=== PATIENT | male | born 1980 | race Caucasian/White ===

== ENCOUNTER → 2020-04-29 16:00 | Outpatient (BNVA) | payer MEDICAID, SELFPAY | PROVIDERS: Family Provider Family Medicine; PCP Nurse Practitioner Family; Visit Provider Nurse Practitioner Family | DX: E11.65 Type 2 diabetes mellitus with hyperglycemia (principal); Z72.0 Tobacco use | CPT/HCPCS: 80053; 80061; 83036; 85025 ==

== ENCOUNTER → 2020-07-02 08:55 | Outpatient (BNVA) | payer MEDICAID, SELFPAY | PROVIDERS: Family Provider Family Medicine; PCP Nurse Practitioner Family; Visit Provider Psychiatry & Neurology Psychiatry | DX: F32.9 Major depressive disorder, single episode, unspecified (principal); F43.10 Post-traumatic stress disorder, unspecified | CPT/HCPCS: 90792 ==

== ENCOUNTER → 2021-08-20 15:21 | Outpatient (BNVA) | payer OTHER, SELFPAY | PROVIDERS: Family Provider Family Medicine; PCP Nurse Practitioner Family; Visit Provider Psychiatry & Neurology Neurology | DX: Z79.899 Other long term (current) drug therapy (principal) | CPT/HCPCS: 36415; 80061; 83036 ==

== ENCOUNTER 2022-04-17 01:12 | Emergency (ER) | payer MEDICAID, SELFPAY ==
[2021-08-28 10:32] VITALS: BP 115/85; BMI 25.3
[2022-04-17 01:15] VITALS: BP 107/71; PULSE 74; RESP 21; O2SAT 95; BMI 23.7
[2022-04-17 01:33] LABS: Basophils # 0.1 10^3/uL (0.0-0.1); Basophils % 0.7 %; Eosinophils # 0.2 10^3/uL (0.0-0.8); Eosinophils % 1.4 %; Hematocrit 38.7 % (42.0-52.0); Hemoglobin 12.8 g/dL (11.7-16.6); Lymphocytes # 1.9 10^3/uL (0.8-4.8); Lymphocytes % 16.9 %; Mean Corpuscular HGB Conc 33.1 g/dL (30.0-36.0); Mean Corpuscular Hemoglobin 33.5 pg (28.0-34.0); Mean Corpuscular Volume 101.3 fl (80-94); Mean Platelet Volume 9.9 fL (7.4-10.4); Monocytes # 0.8 10^3/uL (0.2-0.9); Monocytes % 7.2 %; Neutrophils # 8.08 10^3/uL (1.8-7.7); Neutrophils % 73.6 %; Nucleated Red Blood Cells % 0 %; Platelet Count 281 10^3/cmm (130-400); Red Blood Count 3.82 10^6/uL (4.1-5.3); Red Cell Distribution Width 14.2 % (12.1-15.1)
--- NOTE | 2022-04-17 01:35 | ED_ITS ---
HPI - General Adult General: Chief complaint: General Medical Stated complaint: heat exhaustion Time Seen by Provider: 04/17/22 01:12 Source: patient Mode of arrival: ambulatory Limitations: no limitations History of Present Illness: 42-year-old male that states that his car had broken down in [place] and he states has been out in the heat all day. He states that he walked quite a ways as well and he feels like he has gotten overheated from being out in the heat and walking. He states been having cramps along with some vomiting. Denies any pain anywhere patient denies any chest pain or headache currently. Associated symptoms: Reports nausea and vomiting; Deny chest pain, dyspnea, headache(s) or rash Review of Systems Const: Reports: body aches Eyes: Denies: blurry vision or eye discomfort ENMT: Denies: throat pain or dental pain Card: Denies: chest pain Resp: Denies: dyspnea GI: Reports: nausea and vomiting : Denies: dysuria Musc: Denies: neck pain or back pain Skin/Breast: Denies: rash Neuro: Denies: headache(s) Psych: Denies: depression Justino/Lymph: Denies: easy bruising All/Imm: Denies: urticaria PFSH ED PFSH: Medical History Insomnia Major depressive disorder Neuropathy Nicotine dependence with current use Psychiatric care PTSD (post-traumatic stress disorder) Type 2 diabetes mellitus Social History Smoking and tobacco status: current every day smoker cigarettes Packs smoked per day: 1 Years cigarettes smoked: 20 and smokeless tobacco Smokeless tobacco user: chewing tobacco Smokeless tobacco details: 1 can per week Quit status (tobacco): not considering quitting Second hand smoke exposure: No Alcohol intake: former Year of sobriety/quit date alcohol: 2020 Former alcohol use details: may or june 2021 Adopted: Yes Lives independently: No Household members: spouse and children Housing: House Marital status: Number of children: 2 Number of grandchildren: 0 Highest education level completed: Some College, No Degree service: Yes status: Medically Discharged/Retired status details: medically retired branch: [employer] Known or Potential Exposure: Post Traumatic Stress Disorder (PTSD) Current occupational exposures/hazards: No Pets and animals: Yes Pets & animals: cat(s) History of recent travel: No Leisure activites: hunting, fishing and other Leisure activities details: work around the house Sexually active: No Current gender identity: Male Abril/Mu-Ism: Uatsdin Special abril needs: No Agree to transfusion: Yes Financial difficulty paying for basics: Somewhat Hard Physical Exam Const: COMMON NORMALS: no acute distress, patient oriented x3 and healthy appearing HENMT: COMMON NORMALS: normocephalic and atraumatic HEAD & SCALP: normocephalic and atraumatic Eye: COMMON NORMALS: Equal, round and reactive pupils present and EOMs intact bilaterally PUPIL: Yes Equal, round and reactive pupils present Neck/C-Spine: COMMON NORMALS: full ROM and supple Chest: COMMONS NORMALS: normal inspection of the chest and normal palpation of entire chest wall Resp: COMMON NORMALS: normal respiratory effort, No retractions, No use of accessory muscles and clear to auscultation bilaterally AUSCULTATION: clear to auscultation bilaterally Cardio: COMMON NORMALS: regular rate, regular rhythm and No murmurs present (Cardio) RATE: regular rate RHYTHM: regular rhythm GI: COMMON NORMALS: Normal to inspection, nondistended, normoactive bowel sounds present, Soft to palpation, non-tender and no masses PALPATION: Yes Soft to palpation Extremity: COMMON NORMALS: normal to inspection and full ROM Neuro: COMMON NORMALS: patient oriented x3, moves all extremities and no focal motor deficits Psych: COMMON NORMALS: mental status grossly normal, Normal thought process present and cooperative THOUGHT PROCESS: Normal thought process present Skin: COMMON NORMALS: no rashes or lesions noted and no wounds GENERAL SKIN EXAM: no rashes or lesions noted Course Vital Signs: Vital signs: Vital Signs Pulse Rate 82 04/17/22 02:24 Respiratory Rate 21 H 04/17/22 01:15 Blood Pressure 119/82 04/17/22 02:24 Pulse Oximetry 95 04/17/22 02:24 [facility] - General Adult Medical Decision Making Patient presents here with heat exposure likely causing his cramps while nausea feels much improved after IV fluids blood work is normal he is stable for discharge is to follow-up PCP and return if worsening. Lab Data : 04/17/22 01:30 04/17/22 01:30 Laboratory Results WBC 11.0 10^3/uL (4.0-10.0) H 04/17/22 01:30 RBC 3.82 10^6/uL (4.1-5.3) L 04/17/22 01:30 Hgb 12.8 g/dL (11.7-16.6) 04/17/22 01:30 Hct 38.7 % (42.0-52.0) L 04/17/22 01:30 MCV 101.3 fl (80-94) H 04/17/22 01:30 MCH 33.5 pg (28.0-34.0) 04/17/22 01:30 MCHC 33.1 g/dL (30.0-36.0) 04/17/22 01:30 RDW 14.2 % (12.1-15.1) 04/17/22 01:30 Plt Count 281 10^3/cmm (130-400) 04/17/22 01:30 MPV 9.9 fL (7.4-10.4) 04/17/22 01:30 Neut % (Auto) 73.6 % 04/17/22 01:30 Lymph % (Auto) 16.9 % 04/17/22 01:30 [place] % (Auto) 7.2 % 04/17/22 01:30 Eos % (Auto) 1.4 % 04/17/22 01:30 Baso % (Auto) 0.7 % 04/17/22 01:30 Neut # (Auto) 8.08 10^3/uL (1.8-7.7) H 04/17/22 01:30 Lymph # (Auto) 1.9 10^3/uL (0.8-4.8) 04/17/22 01:30 [place] # (Auto) 0.8 10^3/uL (0.2-0.9) 04/17/22 01:30 Eos # (Auto) 0.2 10^3/uL (0.0-0.8) 04/17/22 01:30 Baso # (Auto) 0.1 10^3/uL (0.0-0.1) 04/17/22 01:30 Nucleated RBC % (auto) 0 % 04/17/22 01:30 Nucleated RBCs # 0.0 /100WBC 04/17/22 01:30 Sodium 138 mmol/L (136-145) 04/17/22 01:30 Potassium 3.6 mmol/L (3.5-5.1) 04/17/22 01:30 Chloride 104 mmol/L (98-107) 04/17/22 01:30 Carbon Dioxide 21 mmol/L (22-29) L 04/17/22 01:30 Anion Gap 16.6 (5-19) 04/17/22 01:30 BUN 12 mg/dL (6-20) 04/17/22 01:30 Creatinine 0.7 mg/dL (0.7-1.2) 04/17/22 01:30 GFR Calculation 123.1 mL/min (90-130) 04/17/22 01:30 Glucose 119 mg/dL (65-115) H 04/17/22 01:30 Calculated Osmolality 287 mOsm/kg (285-295) 04/17/22 01:30 Calcium 8.3 mg/dL (8.5-10.5) L 04/17/22 01:30 Total Bilirubin 0.4 mg/dL (0.15-1.2) 04/17/22 01:30 AST 20 U/L (0-40) 04/17/22 01:30 ALT 21 U/L (0-41) 04/17/22 01:30 Alkaline Phosphatase 75 IU/L (40-130) 04/17/22 01:30 Creatine Kinase 64 U/L (39-308) 04/17/22 01:30 Total Protein 6.7 g/dL (6.6-8.7) 04/17/22 01:30 Albumin 4.1 g/dL (3.5-5.2) 04/17/22 01:30 Globulin 2.6 g/dL (1.3-4.6) 04/17/22 01:30 Discharge Plan Discharge Patient Disposition: Home Clinical Impression: Heat exposure Qualifiers: Encounter type: initial encounter Qualified Code(s): T67.9XXA - Effect of heat and light, unspecified, initial encounter Condition: Stable Prescriptions: No Action albuterol sulfate 90 mcg/actuation HFA aerosol inhaler 2 puff inhalation Q6H PRN0RF (DME) blood-glucose meter [Blood Glucose Monitoring] Kit See Rx Instructions .ROUTE .MEDSUPPLY Qty: 1 0RF Rx Instructions: As directed (DME) Blood Glucose Test Strip See Rx Instructions .ROUTE .MEDSUPPLY Qty: 100 0RF Rx Instructions: As directed gabapentin 300 mg capsule 300 mg PO QID PRN (Reason: pain) 30 Days Qty: 120 5RF oxycodone-acetaminophen [Percocet] 5-325 mg tablet 1 tab PO Q6H PRN0RF naproxen 500 mg tablet 500 mg PO BID PRN (Reason: pain) Qty: 60 0RF sertraline [Zoloft] 100 mg tablet 100 mg PO DAILY 30 Days Qty: 30 3RF sertraline 50 mg tablet 50 mg PO DAILY Qty: 30 3RF Rx Instructions: In addition to 100mg daily (total 150mg daily) prazosin 1 mg capsule 1 - 2 mg PO .at bedtime Qty: 60 1RF Discharge Orders: Discharge ED (Routine); Ordered 04/17/22 Ordered By: Donnell Andrade Referrals: Remy Bianchi, [employer] [Primary Care Provider] - 1-3 days Discharge Diet: Advance as tolerated Discharge Activity: Resume usual activity Patient Instructions: Heat Cramps - Adult Coding Level of Care Code ED Bottoming Room Inspector for Chg Fwd Exam Comprehensive
[2022-04-17 02:01] LABS: Alanine Aminotransferase 21 U/L (0-41); Albumin Level 4.1 g/dL (3.5-5.2); Alkaline Phosphatase 75 IU/L (40-130); Anion Gap 16.6 (5-19); Blood Urea Nitrogen 12 mg/dL (6-20); Calcium 8.3 mg/dL (8.5-10.5); Carbon Dioxide 21 mmol/L (22-29); Chloride 104 mmol/L (98-107); Creatine Phosphokinase 64 U/L (39-308); Creatinine Clr Calc Pharmacy 150.7188; Globulin 2.6 g/dL (1.3-4.6); Glomerular Filtration Rate 123.1 mL/min (90-130); Glucose 119 mg/dL (65-115); Osmolality Calculated 287 mOsm/kg (285-295); Potassium 3.6 mmol/L (3.5-5.1); Sodium 138 mmol/L (136-145); Total Bilirubin 0.4 mg/dL (0.15-1.2); Total Protein 6.7 g/dL (6.6-8.7)
[2022-04-17 02:02] LABS: Aspartate Amino Transferase 20 U/L (0-40)
[2022-04-17 02:24] VITALS: BP 119/82; PULSE 82; O2SAT 95
[2022-04-17] MEDS: sodium chloride 0.9% 1,000 ML 999 ML IV (02:31)
[2022-04-17 03:39] VITALS: BP 123/75; PULSE 79; RESP 16; O2SAT 96
== END 2022-04-17 03:40 | disposition home or self-care (01) ==
PROVIDERS: Emergency Provider Emergency Medicine; PCP Nurse Practitioner Family
DX: T67.5XXA Heat exhaustion, unspecified, initial encounter (principal); X30.XXXA Exposure to excessive natural heat, initial encounter
CPT/HCPCS: 80053; 82550; 85025; 96360; 99284; J7030